=== PATIENT | female | born 1990 | race Caucasian/White ===

== ENCOUNTER 2017-07-26 12:22 | Inpatient (IN) | payer OTHER ==
[~2017-07-26] VITALS: Ht 162.6 cm; Wt 81.6 kg
[~2017-07-26 12:22] MED LIST: ANUCORT-HC25 MG RECTAL; CALCIUM 500 +1 EAC4; CIPROFLOXACIN500 M1 PO; CRUTCHES TOP; DEPO-PROVERA; FLEXERIL PO; HYDROCODON-ACE1 EAC7 PO; HYDROCODONE-AP1 EAC6 PO; IBUPROFEN 800800 M1 PO; KEFLEX500 MG PO; LEVOTHROID50 MCG; LEVOTHYROXINE; LEVOXYL150 MCG PO; MIRENA; NORCO 5-325 TA1 EACH PO; ONDANSETRON HCL4 M2 PO; OXYCODON-ACETA1 EAC1 PO; PEPCID40 MG PO; PERCOCET 5-3251 EACH PO; PHENERGAN 25 MG25 M1 PO; PHENERGAN50 MG RC; POTASSIUM20 PO; PREVACID 24HR15 MG PO; PROAIR HFA8.5 GM INH; PROVENTIL HFA6.7 G1 INH; PYRIDIUM200 MG PO; SERTRALINE HCL50 MG PO; SYNTHROID25 MC1 PO; TRAMADOL 50 MG50 MG PO; VICODIN 5-5001 EACH; XANAX 0.25 MG0.25 MG PO; ZOFRAN 4 MG ORAL4 MG PO; ZOFRAN ODT4 MG SUBLING; ZOFRAN4 MG PO
[2017-07-26 12:23] VITALS: BP 130/88
[2017-07-26 12:48] LABS: ABSOLUTE BASOPHILS 0.1 thou/uL (0.0-0.2); ABSOLUTE LYMPHOCYTES 2.2 thou/uL (0.8-5.3); ABSOLUTE NEUTROPHILS 16.4 thou/uL (1.6-8.1); BASOPHILS 0.6 %; HEMATOCRIT 44.4 % (37.0-47.0); HEMOGLOBIN 15.1 gm/dL (12.0-15.0); LYMPHOCYTES 11.2 %; MCH 30.8 pg (26.0-34.0); MCHC 34.1 g/dL (28.0-37.0); MCV 90.5 fL (80.0-100.0); MONOCYTES 5.3 %; MPV 8.5 fl. (7.2-11.1); NUCLEATED RBCS 0 /100WBC; PLATELET COUNT* 289 thou/uL (150-400); POLYS 82.9 %; RBC 4.91 mil/uL (4.20-5.00); RDW-CV 13.4 % (10.5-14.5); WBC 19.7 thou/uL (4.0-11.0)
[2017-07-26 12:56] LABS: CALCIUM 10.5 mg/dL (8.5-10.1); CREATININE 1.2 mg/dL (0.6-1.3); POTASSIUM 3.3 mmol/L (3.5-5.1)
[2017-07-26 13:00] LABS: TOTAL BILIRUBIN 1.8 mg/dL (<0.1-1.0)
[2017-07-26 14:21] LABS: URINE BLOOD 3+ (Negative); URINE CLARITY CLEAR; URINE COLOR YELLOW; URINE GLUCOSE-RANDOM NEGATIVE (Negative); URINE KETONES 1+ (Negative); URINE LEUKOCYTES NEGATIVE (Negative); URINE NITRITE NEGATIVE (Negative); URINE PROTEIN 1+ (Negative); URINE SPECIFIC GRAVITY 1.025 (1.005-1.030); URINE UROBILINOGEN 0.2 E.U./dl (0.2-1.0)
[2017-07-26 14:27] LABS: ICTOTEST (BILI CONFIRMATORY) Negative (Negative); URINE BILIRUBIN 1+ (Negative)
[2017-07-26 14:28] LABS: AMP/METHAMP Negative (Negative); BARBITURATES Negative (Negative); BENZODIAZEPINES POSITIVE (Negative); COCAINE Negative (Negative); METHADONE Negative (Negative); OPIATES Negative (Negative); PCP Negative (Negative); THC POSITIVE (Negative)
[2017-07-26 14:56] LABS: CASTS None Seen /LPF (None Seen); CRYSTALS None Seen /LPF (None Seen); MUCUS 0-3 Light strn/LPF (None Seen); SQUAMOUS 0-3 Few /LPF (0-3)
[2017-07-26 14:58] LABS: URINE RBC 3-10 Few /HPF (0-2); URINE WBC 0-5 Rare /HPF (0-5)
[2017-07-26 14:59] LABS: BACTERIA 1-9 Few /HPF (None Seen)
[2017-07-26 16:05] VITALS: BP 117/83
[2017-07-26 18:02] LABS: CALCIUM 8.8 mg/dL (8.5-10.1); CREATININE 1.1 mg/dL (0.6-1.3); POTASSIUM 4.1 mmol/L (3.5-5.1)
[2017-07-26 22:00] VITALS: BP 101/59
[2017-07-27 00:09] VITALS: BP 94/51
[2017-07-27 04:11] LABS: HEMATOCRIT 38.6 % (37.0-47.0); MCH 30.8 pg (26.0-34.0); MCHC 33.5 g/dL (28.0-37.0); MCV 91.9 fL (80.0-100.0); MPV 9.2 fl. (7.2-11.1); RBC 4.2 mil/uL (4.20-5.00); RDW-CV 13.5 % (10.5-14.5); WBC 12.8 thou/uL (4.0-11.0)
[2017-07-27 04:39] LABS: ALBUMIN 3.6 g/dL (3.4-5.0); CALCIUM 8.3 mg/dL (8.5-10.1); TOTAL BILIRUBIN 1.7 mg/dL (<0.1-1.0); TOTAL PROTEIN 6.6 g/dL (6.4-8.2)
[2017-07-27 04:46] LABS: HEMOGLOBIN 12.9 gm/dL (12.0-15.0)
--- NOTE | 2017-07-27 04:58 | NUR ---
ALERT AND ORIENTED X4. UP AD DAVID IN ROOM. USING IV PAIN AND NAUSEA MEDICATION TO HELP CONTROL ABDOMEN PAIN AND NAUSEA. NEW IV STARTED WITHOUT DIFFICULTY IN RIGHT ARM. NPO AT THIS TIME. CONTINUES TO RECEIVE IV ANTIBIODICS WITHOUT ADVERSE REACTIONS OR SIDE EFFECTS. CALL LIGHT WITHIN REACH.
[2017-07-27 06:00] VITALS: BP 95/64
[2017-07-27 08:00] VITALS: BP 94/61
[2017-07-27 08:05] VITALS: BP 94/61
[2017-07-27 16:00] VITALS: BP 112/63
--- NOTE | 2017-07-27 18:03 | NUR ---
PATIENT REMAINED ALERT AND ORIENTED X'S 4. VITAL SIGNS AND SPO2 STABLE. IV CLEAN, FLUIDS INFUSING. PAIN WELL CONTROLLED WITH PAIN MEDS. TOLERATED ANTIBIOTICS. ADVANCED TO FULL LIQUID DIET, PATIENT TOLERATED, NO NAUSEA AND VOMITING. LAB VALUES IMPROVED GREATLY FROM YESTERDAY. PATIENT FEELS MUCH BETTER. UP AD DAVID. COMPLETED HOURLY ROUNDING. CALL LIGHT WITHIN REACH. WILL CONTINUE TO MONITOR.
[2017-07-27 20:12] VITALS: BP 129/57
--- NOTE | 2017-07-28 04:48 | NUR ---
ALERT AND ORIENTED X4. UP AD DAVID IN ROOM. USING IV PAIN AND NAUSEA MEDICATION. NPO AT THIS TIME FOR MRCP TODAY. IVF INFUSING WITHOUT DIFFICULTY. CALL LIGHT WITHIN REACH.
[2017-07-28 05:47] LABS: ALBUMIN 3.1 g/dL (3.4-5.0); DIRECT BILIRUBIN 0.4 mg/dL (<0.1-0.3); TOTAL BILIRUBIN 1.4 mg/dL (<0.1-1.0); TOTAL PROTEIN 5.6 g/dL (6.4-8.2)
--- NOTE | 2017-07-28 06:58 | NUR ---
PATIENT C/O LEFT HAND/WRIST BEING SWOLLEN. ICE APPLIED. WILL PASS ON TO LET DR MUELLER
[2017-07-28 15:50] VITALS: BP 101/60
--- NOTE | 2017-07-28 18:14 | NUR ---
ALERT AND ORIENTED X4. UP AD DAVID DURING AMBULATION. IV IS PATENT AND INFUSING. IN LEFT FOREARM. IV INFILTRATED ON LAMINATING PRESS OPERATOR AND THROUGHOUT THE NIGHT PATIENTS HAND AND WRIST GOT PROGRESSIVELY MORE SWOLLEN. PAIN IS BEING MANAGED WITH IV PAIN MEDICATION. NAUSEA BEING MANAGED WITH IV NAUSEA MEDICATION. VSS ON ROOM AIR. HOURLY ROUNDS HAVE BEEN MAINTAINED THROUGHOUT SHIFT. CALL LIGHT IS WITHIN REACH. NURSING WILL CONTINUE TO MONITOR.
[2017-07-29 05:56] LABS: ABSOLUTE BASOPHILS 0.1 thou/uL (0.0-0.2); ABSOLUTE EOSINOPHILS 0.2 thou/uL (0.0-0.7); ABSOLUTE LYMPHOCYTES 2.8 thou/uL (0.8-5.3); ABSOLUTE MONOCYTES 0.5 thou/uL (0.0-1.2); ABSOLUTE NEUTROPHILS 4.9 thou/uL (1.6-8.1); BASOPHILS 0.6 %; EOSINOPHILS 2.2 %; HEMOGLOBIN 12.1 gm/dL (12.0-15.0); LYMPHOCYTES 32.8 %; MCH 31.5 pg (26.0-34.0); MCHC 34.6 g/dL (28.0-37.0); MCV 91.1 fL (80.0-100.0); MONOCYTES 6.4 %; MPV 9.4 fl. (7.2-11.1); NUCLEATED RBCS 0 /100WBC; PLATELET COUNT* 183 thou/uL (150-400); RBC 3.85 mil/uL (4.20-5.00); RDW-CV 13.3 % (10.5-14.5); WBC 8.4 thou/uL (4.0-11.0)
--- NOTE | 2017-07-29 06:04 | NUR ---
PATIENT SLEPT OFF AND ON BUT WAS RESTLESS AT TIMES AND HAS ANXIETY. ANXIETY MEDICATION GIVEN AND CHARTED. PAIN MEDICATION GIVEN NEEDED AND CHARTED AND NAUSEA MEDICATION GIVEN FOR C/O NAUSEA AND CHARTED. IV IN LEFT FOREARM-NS @ 250ML/HR. VSS ON RA. PATIENT IS UP AD-DAVID AND STEADY. PATIENT INSTRUCTED TO USE CALL LIGHT WHEN NEEDING ASSISTANCE. HOURLY ROUNDS MADE. WILL CONTINUE WITH PLAN OF CARE AND NURSING TO MONITOR.
[2017-07-29 06:08] LABS: ALBUMIN 2.9 g/dL (3.4-5.0); CALCIUM 7.7 mg/dL (8.5-10.1); CREATININE 0.9 mg/dL (0.6-1.3); POTASSIUM 3.5 mmol/L (3.5-5.1); TOTAL BILIRUBIN 0.9 mg/dL (<0.1-1.0); TOTAL PROTEIN 5.3 g/dL (6.4-8.2)
[2017-07-29 07:51] VITALS: BP 109/70
[2017-07-29] MEDS ORDERED: KEFLEX500 M1 PO (10:57)
[2017-07-29] MEDS ORDERED: COENZYME Q-10200 MG PO (10:58)
[2017-07-29] MEDS ORDERED: AMITRIPTYLINE H25 M2 PO (10:59)
[2017-07-29] MEDS ORDERED: PHENERGAN 25 MG25 M1 PO (10:59)
[2017-07-29 11:00] VITALS: BP 109/70
[2017-07-29] MEDS ORDERED: TRAMADOL 50 MG50 MG PO (11:00)
--- NOTE | 2017-07-29 11:46 | NUR ---
ASSUMED CARE OF PATIENT AFTER MORNING REPORT. ALERT AND ORIENTED X4. ASSESSMENT COMPLETED AND CHARTED. VSS ON ROOM AIR. FLUIDS AND ANTIBIOTICS INFUSED ORDERED. PATIENTS PAIN AND NAUSEA CONTROLLED BY MEDICATION. PATIENT DISCHARGED AT 1140 WITH HER MOTHER. ALL PERSONAL BELONGINGS LEFT WITH PATIENT. DISCHARGE INSTRUCTIONS AND PRESCRIPTIONS SENT WITH PATIENT UPON DISCHARGE.
--- NOTE | 2017-08-04 15:07 | CON ---
[address] [address] CONSULTATION Name: ROSY FATIMA Room: [address]#: [id number] Admission: 07/26/17 Attend Phys: Ceasar Workman, Discharge: 07/29/17 Date of : 89 Report #: [id number] THIS REPORT FOR: //name// CC: Barbra Workman DATE OF SERVICE: 07/26/2017 GASTROENTEROLOGY CONSULTATION REASON FOR CONSULTATION: Nausea and vomiting. HISTORY OF PRESENT ILLNESS: This is a 27-year-old female with history of gallbladder disease, status post cholecystectomy about 6 years ago. The patient reports that intermittently has symptoms of nausea and vomiting and epigastric pain. 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 Reviewing the patient's labs, her bilirubin was elevated to 1.9. Also, lipase was 1200. There is no evidence of pancreatitis per imaging. PAST MEDICAL HISTORY: Significant for history of nausea, vomiting, pancreatitis, urinary tract infection, gallbladder disease, status post cholecystectomy, thyroidectomy and asthma. ALLERGIES: No known drug allergies. MEDICATIONS: Please refer to hospital MAR. SOCIAL HISTORY: The patient smokes cigarettes 1/2 a pack per day. She also uses marijuana, but denies alcohol use. FAMILY HISTORY: Noncontributory. PHYSICAL EXAMINATION: VITAL SIGNS: Reveals blood pressure of 194/61, respirations 16, pulse 63, temperature 97.4. LUNGS: Clear. CARDIOVASCULAR: Regular. ABDOMEN: Soft, nontender, nondistended. Bowel sounds are positive. LABORATORY DATA: Reveal sodium of 140, potassium 4.0, BUN is 23, creatinine 1.0. Liver function test is within normal limit. Lipase was 1297 and 262 today. Bilirubin was 1.8 and 1.7 now. Reviewing the patient's bilirubin, it was elevated on 11/16/2016 and 03/06/2013. WBC is 12.8 down from 19.7 and platelet of 224, hemoglobin is 12.9. [place] [address] CONSULTATION Name: ROSY FATIMA Room: [address]#: [id number] Admission: 07/26/17 Attend Phys: Ceasar Workman, Discharge: 07/29/17 Date of : [birth year] Report #: [id number] ASSESSMENT AND PLAN: Since the patient has intermittent elevation of bilirubin and with a history of cholecystectomy, one may think that she may have gallstone pancreatitis and may have passed the stone. Given the recurrence of the symptoms, I think that obtaining MRCP would be recommended. I will allow her to eat a full liquid diet. Continue monitoring lipase and LFTs. <ELECTRONICALLY SIGNED> By: Rosario Bingham MD 08/04/17 1507 1213 1749Farid Galina Bingham MD /shanelle
== END 2017-07-29 11:40 | disposition home or self-care (01) | DRG 439 ==
LOC: M.ERS 12:22 → M.TBA-ER 15:23 → M.ORTHSURG 15:23 → M.ERS 16:05 → M.ORTHSURG 16:14
PROVIDERS: Internal Medicine; Internal Medicine Gastroenterology; Nurse Practitioner Adult Health; Physician Assistant; ADMIT Family Medicine
DX: K85.90 Acute pancreatitis without necrosis or infection, unspecified (principal); E44.0 Moderate protein-calorie malnutrition; E89.0 Postprocedural hypothyroidism; J45.909 Unspecified asthma, uncomplicated; E87.6 Hypokalemia; G43.A0 Cyclical vomiting, in migraine, not intractable; F41.9 Anxiety disorder, unspecified; F17.210 Nicotine dependence, cigarettes, uncomplicated; F12.10 Cannabis abuse, uncomplicated; Z90.49 Acquired absence of other specified parts of digestive tract; Z23 Encounter for immunization; Z79.899 Other long term (current) drug therapy

== ENCOUNTER 2017-08-20 14:32 | Emergency (ER) | payer OTHER ==
[~2017-08-20] VITALS: Ht 162.6 cm; Wt 81.7 kg
[~2017-08-20 14:32] MED LIST changes: +AMITRIPTYLINE H25 M2 PO; +COENZYME Q-10200 MG PO; +KEFLEX500 M1 PO
[2017-08-20 15:02] LABS: ABSOLUTE BASOPHILS 0.1 thou/uL (0.0-0.2); ABSOLUTE EOSINOPHILS 0.2 thou/uL (0.0-0.7); ABSOLUTE LYMPHOCYTES 3.1 thou/uL (0.8-5.3); ABSOLUTE MONOCYTES 0.6 thou/uL (0.0-1.2); ABSOLUTE NEUTROPHILS 8.4 thou/uL (1.6-8.1); BASOPHILS 1.1 %; EOSINOPHILS 1.9 %; HEMATOCRIT 44.2 % (37.0-47.0); HEMOGLOBIN 14.9 gm/dL (12.0-15.0); LYMPHOCYTES 24.5 %; MCH 30.9 pg (26.0-34.0); MCHC 33.8 g/dL (28.0-37.0); MCV 91.4 fL (80.0-100.0); MPV 8.6 fl. (7.2-11.1); NUCLEATED RBCS 0 /100WBC; PLATELET COUNT* 295 thou/uL (150-400); POLYS 67.5 %; RBC 4.84 mil/uL (4.20-5.00); RDW-CV 13.5 % (10.5-14.5); WBC 12.5 thou/uL (4.0-11.0)
[2017-08-20 15:11] LABS: ANION GAP 9 mmol/L (7-16); BUN 13 mg/dL (7-18); CALCIUM 9.5 mg/dL (8.5-10.1); CHLORIDE 106 mmol/L (98-107); CO2 27 mmol/L (21-32); CREATININE 1.1 mg/dL (0.6-1.3); GLUCOSE 119 mg/dL (70-99); POTASSIUM 3.7 mmol/L (3.5-5.1); SODIUM 142 mmol/L (136-145)
[2017-08-20 15:17] LABS: URINE BLOOD TRACE (Negative); URINE CLARITY CLOUDY; URINE COLOR YELLOW; URINE GLUCOSE-RANDOM NEGATIVE (Negative); URINE KETONES TRACE (Negative); URINE LEUKOCYTES-REFLEX TRACE (Negative); URINE NITRITE-REFLEX NEGATIVE (Negative); URINE PROTEIN 2+ (Negative); URINE SPECIFIC GRAVITY 1.025 (1.005-1.030); URINE UROBILINOGEN 0.2 E.U./dl (0.2-1.0)
[2017-08-20 15:18] LABS: ALBUMIN 4.4 g/dL (3.4-5.0); ALKALINE PHOSPHATASE 111 U/L (46-116); LIPASE 968 U/L (73-393); SGOT 17 U/L (15-37); SGPT 25 U/L (30-65); TOTAL BILIRUBIN 0.8 mg/dL (<0.1-1.0); TOTAL PROTEIN 8.1 g/dL (6.4-8.2); TROPONIN-I LEVEL <0.06 ng/mL (<0.06)
[2017-08-20 15:23] LABS: ICTOTEST (BILI CONFIRMATORY) Negative (Negative); URINE BILIRUBIN 1+ (Negative)
[2017-08-20 15:26] LABS: SQUAMOUS >10 Many /LPF (0-3)
[2017-08-20 15:32] LABS: MUCUS >6 Heavy strn/LPF (None Seen); URINE RBC 3-10 Few /HPF (0-2); URINE WBC-REFLEX 0-5 Rare /HPF (0-5)
[2017-08-20 15:33] LABS: CASTS None Seen /LPF (None Seen); CRYSTALS None Seen /LPF (None Seen)
[2017-08-20 16:51] VITALS: BP 131/96
--- NOTE | 2017-08-21 09:24 | EKG ---
[place] [address] ELECTROCARDIOGRAM REPORT Name: ROSY FATIMA Room: [facility]#: [id number] Admission: 08/20/17 Attend Phys: Discharge: 08/20/17 Date of : 89 Report #: [id number] THIS REPORT FOR: //name// [facility] ED Test Date: 2017-08-20 Test Time: 15:34:12 Pat Name: ROSY AKUA Department: Room: Gender: F Mill Oiler: Ivy NATH : 1990 Requested By: Emery Temple Order Number: [id number] MD: Shade Jackson Measurements Intervals [place] Rate: 69 P: 62 CO: 161 QRS: 22 QRSD: 88 T: 1 QT: 420 QTc: 450 Interpretive Statements Sinus rhythm Low voltage, precordial leads Abnormal Q suggests anterior infarct Compared to ECG 09/13/2009 17:22:17 Low QRS voltage now present Myocardial infarct finding now present Sinus bradycardia no longer present Electronically Signed On 08-21-2017 9:24:15 CDT by Shade Jackson [email or web address] <ELECTRONICALLY SIGNED> By: Shade Jackson MD, FAC 08/21/17 0924 1534 1534 Shade Jackson MD, [facility] /EPI
== END 2017-08-20 16:54 | disposition left against medical advice (07) ==
LOC: M.ERS 14:32
PROVIDERS: Physician Assistant
DX: R11.2 Nausea with vomiting, unspecified (principal); R10.13 Epigastric pain; J45.909 Unspecified asthma, uncomplicated; F17.210 Nicotine dependence, cigarettes, uncomplicated

== ENCOUNTER 2017-11-18 10:29 | Emergency (ER) | payer OTHER ==
[~2017-11-18] VITALS: Ht 162.6 cm; Wt 77.1 kg
[2017-11-18 11:15] LABS: ABSOLUTE BASOPHILS 0.1 thou/uL (0.0-0.2); ABSOLUTE EOSINOPHILS 0.1 thou/uL (0.0-0.7); ABSOLUTE MONOCYTES 0.5 thou/uL (0.0-1.2); EOSINOPHILS 0.6 %; HEMATOCRIT 42.7 % (37.0-47.0); HEMOGLOBIN 14.2 gm/dL (12.0-15.0); LYMPHOCYTES 16.7 %; MCH 30.5 pg (26.0-34.0); MCHC 33.2 g/dL (28.0-37.0); MCV 91.8 fL (80.0-100.0); MONOCYTES 4.5 %; MPV 8.8 fl. (7.2-11.1); NUCLEATED RBCS 0 /100WBC; PLATELET COUNT* 279 thou/uL (150-400); POLYS 77.2 %; RBC 4.66 mil/uL (4.20-5.00); RDW-CV 13.2 % (10.5-14.5); WBC 11.7 thou/uL (4.0-11.0)
[2017-11-18 11:44] LABS: CALCIUM 9.5 mg/dL (8.5-10.1); POTASSIUM 3.1 mmol/L (3.5-5.1)
[2017-11-18 11:49] LABS: ALBUMIN 4.3 g/dL (3.4-5.0); TOTAL BILIRUBIN 1.5 mg/dL (<0.1-1.0); TOTAL PROTEIN 7.9 g/dL (6.4-8.2)
[2017-11-18] MEDS ORDERED: ZOFRAN ODT4 MG SUBLING (11:57)
[2017-11-18 12:04] VITALS: BP 124/89
== END 2017-11-18 12:13 | disposition home or self-care (01) ==
LOC: M.ERS 10:29
PROVIDERS: Family Medicine
DX: R11.2 Nausea with vomiting, unspecified (principal); J45.909 Unspecified asthma, uncomplicated; F17.210 Nicotine dependence, cigarettes, uncomplicated

== ENCOUNTER 2017-12-25 11:50 | Emergency (ER) | payer OTHER ==
[~2017-12-25] VITALS: Ht 162.6 cm; Wt 68.0 kg
[2017-12-25] MEDS ORDERED: LMX 430 GM TOP (12:24)
[2017-12-25 13:00] VITALS: BP 110/73
[2017-12-27 23:11] LABS: HSV 1 DNA Negative (Negative); HSV 2 DNA Positive (Negative)
== END 2017-12-25 13:01 | disposition home or self-care (01) ==
LOC: M.ERS 11:50
PROVIDERS: Nurse Practitioner Family
DX: S30.814A Abrasion of vagina and vulva, initial encounter (principal); J45.909 Unspecified asthma, uncomplicated; E89.0 Postprocedural hypothyroidism; F17.210 Nicotine dependence, cigarettes, uncomplicated; X58.XXXA Exposure to other specified factors, initial encounter; Y93.89 Activity, other specified; Y92.89 Other specified places as the place of occurrence of the external cause; Y99.8 Other external cause status

== ENCOUNTER 2018-03-09 17:25 | Emergency (ER) | payer OTHER ==
[~2018-03-09] VITALS: Ht 162.6 cm; Wt 74.8 kg
[~2018-03-09 17:25] MED LIST changes: +LMX 430 GM TOP
[2018-03-09 17:30] VITALS: BP 153/103
== END 2018-03-09 18:02 | disposition left against medical advice (07) ==
LOC: M.ERS 17:25
DX: Z53.21 Procedure and treatment not carried out due to patient leaving prior to being seen by health care provider (principal)

== ENCOUNTER 2018-06-18 18:36 | Emergency (ER) | payer OTHER ==
[~2018-06-18] VITALS: Ht 162.6 cm; Wt 78.2 kg
[2018-06-18] MEDS ORDERED: PROMS25 WY (18:45)
[2018-06-18] MEDS ORDERED: PRE NATAL VITAMIN (18:45)
[2018-06-18 19:14] LABS: CALCIUM 9.1 mg/dL (8.5-10.1); CREATININE 0.8 mg/dL (0.6-1.3); POTASSIUM 3.4 mmol/L (3.5-5.1)
[2018-06-18 19:19] LABS: ALBUMIN 3.4 g/dL (3.4-5.0); TOTAL BILIRUBIN 0.7 mg/dL (<0.1-1.0); TOTAL PROTEIN 7.6 g/dL (6.4-8.2)
[2018-06-18 19:28] LABS: HEMATOCRIT 36.2 % (37.0-47.0); MCH 30.9 pg (26.0-34.0); MCHC 33.2 g/dL (28.0-37.0); MCV 93.1 fL (80.0-100.0); MPV 8.8 fl. (7.2-11.1); NUCLEATED RBCS 0 /100WBC; PLATELET COUNT* 286 thou/uL (150-400); RBC 3.89 mil/uL (4.20-5.00); RDW-CV 13.3 % (10.5-14.5); WBC 19.4 thou/uL (4.0-11.0)
[2018-06-18 19:48] LABS: ABSOLUTE LYMPHOCYTES 1.4 thou/uL (0.8-5.3); ABSOLUTE MONOCYTES 0.2 thou/uL (0.0-1.2); ABSOLUTE NEUTROPHILS 17.8 thou/uL (1.6-8.1); ATYPICAL LYMPHS 1 %; PLATELET ESTIMATE ADEQUATE
[2018-06-18 21:33] VITALS: BP 131/75
== END 2018-06-18 21:36 | disposition home or self-care (01) ==
LOC: M.ERS 18:36
PROVIDERS: Nurse Practitioner Family
DX: O21.0 Mild hyperemesis gravidarum (principal); F17.210 Nicotine dependence, cigarettes, uncomplicated; J45.909 Unspecified asthma, uncomplicated; Z90.49 Acquired absence of other specified parts of digestive tract; Z98.890 Other specified postprocedural states; Z3A.14 14 weeks gestation of pregnancy